=== PATIENT | female | born 1960 | race Caucasian/White ===

== ENCOUNTER 2017-03-31 13:29 | Inpatient (IN) ==
[2017-03-31] MEDS ORDERED: *HR* Morphine 2 MG/ML SYRINGE IVP ONE (13:39)
[2017-03-31] MEDS ORDERED: *HR* HYDROmorphone (PF) 1 MG/ML SYRINGE IM ONE (13:49)
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
[2017-03-31] MEDS ORDERED: *HR* HYDROmorphone (PF) 1 MG/ML SYRINGE IVP ONE (14:43)
[2017-03-31] MEDS ORDERED: Dexamethasone 4 MG/ML VIAL ONE (15:01)
[2017-03-31] MEDS ORDERED: *HR* FentaNYL (PF) 100 MCG/2 ML VIAL ONE (15:01)
[2017-03-31] MEDS ORDERED: *HR* Propofol 200 MG/20 ML VIAL IVP ONE (15:01)
[2017-03-31] MEDS ORDERED: Ondansetron 4 MG/2 ML VIAL ONE (15:01)
[2017-03-31] MEDS ORDERED: *HR* Midazolam HCl 2 MG/2 ML VIAL ONE (15:01)
--- NOTE | 2017-03-31 15:02 | Anesthesia Evaluation PreOp ---
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 HX Other Medical History: Other (osteoporosis) Anesthesia History: No Prior Anesthetic Complications, Past Anesthesia (C/S x3, right arm surgery) : No Alcohol Use: occasionally, heavy, recent Drug use: none Medications and Allergies 3 Allergy/AdvReac Type Severity Reaction Status Date / Time No Known Allergies Allergy Verified 03/31/17 13:35 - Meds/Allergy Pre-op Review Medications Reviewed: No Allergies Reviewed: No Beta Blockers on Current Med List: No Anesthesia Exam Selected Entries 03/31/17 13:32 Temperature 97.9 F Pulse Rate 93 Respiratory Rate 20 Blood Pressure 171/106 O2 Sat by Pulse Oximetry 98 Weight: 52kg - HEENT Pupil (Motor): EOMI Mallampati: II Teeth: Edentulous Oral Opening: Greater than 3 - 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 Reports last beer was this morning, approx 6 hours ago. 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
[2017-03-31] MEDS ORDERED: Lidocaine -MPF 2% 2 ML VIAL ONE (15:03)
--- NOTE | 2017-03-31 15:05 | Emergency Department Note ---
START Narrative - START START: I examined this patient and my medical decision-making was reviewed with the Resident Physician. I agree with the documented findings, disposition and treatment plan as described except to the extent set forth below. pt with right hip fx. seen by Ortho in ER, Dr Ramos. will take to OR this afternoon pt updated x rays reviewed pre-op clearance now
[2017-03-31 15:09] LABS: Basophils % 0.7 %; Eosinophils # 0.1 K/mcL (0.0-0.6); Eosinophils % 1.1 %; Hematocrit 45.1 % (35.3-44.9); Hemoglobin 15.4 g/dL (11.5-15.4); Immature Granulocytes % 0.4 % (0-4); Lymphocytes # 1.1 K/mcL (0.6-4.6); Lymphocytes % 23.2 %; Mean Corpuscular HGB Conc 34.1 g/dL (31.6-35.5); Mean Corpuscular Hemoglobin 31.2 pg (28.0-33.3); Mean Corpuscular Volume 91.5 fL (83.0-100.0); Monocytes # 0.2 K/mcL (0.0-1.3); Monocytes % 3.8 %; Neutrophils # 3.2 K/mcL (1.6-8.9); Platelet Count 256 K/mcL (140-400); Red Blood Count 4.93 M/mcL (3.82-4.97); Red Cell Distribution Width 12.3 % (11.5-14.5); Segmented Neutrophils % 70.8 %
[2017-03-31 15:14] LABS: Prothrombin Time 10.9 Seconds (9.4-12.1)
[2017-03-31 15:16] LABS: Activated Partial Thrombo Time 32.1 Seconds (26.0-36.0)
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
[2017-03-31 15:24] LABS: BUN/Creatinine Ratio 4 (6-26); Calcium 8.9 mg/dL (8.6-10.8); Carbon Dioxide 26 mEq/L (19-29); Chloride 100 mEq/L (98-109); Glucose 102 mg/dL (70-99); Osmolality,Calculated 276 (280-300); Potassium 3.8 mEq/L (3.5-4.5); Sodium 135 mEq/L (136-145); eGFR For African Americans > 60 (> 60); eGFR For Non-African Americans > 60 (> 60)
[2017-03-31 15:25] LABS: Blood Urea Nitrogen 2 mg/dL (7-20)
[2017-03-31] MEDS ORDERED: *HR* Succinylcholine 200 MG/10 ML VIAL IVP ONE (15:48)
[2017-03-31] MEDS ORDERED: *HR* Meperidine 25 MG/ML SYRINGE IVP PRN ×2 (15:56→16:08)
[2017-03-31] MEDS ORDERED: Naloxone 0.4 MG/ML INJ IVP PRN ×3 (15:56→17:14)
[2017-03-31] MEDS ORDERED: Ondansetron 4 MG/2 ML VIAL IVP PRN ×2 (15:56→16:08)
--- NOTE | 2017-03-31 16:04 | Orthopedic Operative Note ---
Date of procedure: 03/31/17 Pre-op diagnosis: Nondisplaced right hip fracture Post-op diagnosis: same Procedure: Procedure: Right hip open pinning Estimated blood loss: 5 cc Hardware:2 Synthes 7.3 cannulated metal screws Operative procedure: The patient was brought to the operating room and placed on the operating room table. After general anesthesia was administered the well leg was place in the well leg avendaño and the operative leg was placed in the fracture leg avendaño. All pressure points were padded appropriately. The operative extremity was prepped and draped in the sterile surgical fashion patient received IV antibiotic prior to skin incision. Using fluoroscopic assistance a guidepin was placed through a small stab incision on the lateral aspect of the femur. Placed through the lateral femur across the fracture site into the femoral head addition of the guidepin was found to be acceptable in AP and lateral planes. A second guidepin was placed in an appropriate position and confirmed with fluoroscopy. Two 7.3 cannulated screws were placed over the guidepins, and their position was confirmed with fluoroscopy as well. Hardware as well as fracture site was well reduced and well positioned. Wound was irrigated and closed with a 2-0 Monocryl suture The patient was placed in a sterile dressing The patient was extubated and transferred to the recovery room in stable condition. Anesthesia: GETA Surgeon: Brandin Ramos Condition: stable Disposition: PACU
[2017-03-31] MEDS ORDERED: *HR* HYDROmorphone (PF) 1 MG/ML SYRINGE IVP PRN (16:08)
[2017-03-31] MEDS ORDERED: *HR* HYDROmorphone (PF) 1 MG/ML SYRINGE ONE (16:35)
[2017-03-31] MEDS: *HR* HYDROmorphone (PF) 1 MG/ML SYRINGE IVP PRN ×4 (16:35→23:49)
--- NOTE | 2017-03-31 16:53 | Anesthesia Evaluation Post Op ---
Date of Encounter: 03/31/17 Time of Encounter: 16:52 - Vital Signs Vital Signs: Selected Entries 03/31/17 16:14 03/31/17 16:34 Temperature 97.2 F L Pulse Rate 78 Respiratory Rate 16 Blood Pressure 169/91 O2 Sat by Pulse Oximetry 97 Oxygen Flow Rate (LPM) 3 - Lungs Lungs: Clear Ascult./Percussion - Airway Airway: Non-obstructed - Cardiovascular Regular Rate - Mental Status Mental Status: Alert & Oriented, Answers Appropriately - Pain Pain Scale: 0 Pain Scale used: Numeric (1 - 10) - Nausea Vomiting Nausea Vomiting: Not Present - Hydration Hydration: NPO, Has not voided - Discharge PostOp Status: Transfer Patient to floor
[2017-03-31] MEDS ORDERED: *HR* OxyCODONE Immed Rel 5 MG TABLET PO PRN (17:14)
[2017-03-31] MEDS ORDERED: ceFAZolin 2,000 MG in D5% in Water 100 ML IVPB SCH (17:14)
[2017-03-31] MEDS ORDERED: traMADol 50 MG TABLET PO PRN (17:14)
[2017-03-31] MEDS ORDERED: diazePAM 10 MG/2 ML SYRINGE IVP PRN (17:15)
[2017-03-31] MEDS ORDERED: diazePAM 10 MG/2 ML SYRINGE IVP ONE (17:18)
[2017-03-31] MEDS: *HR* OxyCODONE Immed Rel 5 MG TABLET PO PRN ×2 (18:27→22:41)
[2017-03-31] MEDS: Nicotine 21 MG PATCH.TD24 TD SCH (20:08)
[2017-03-31] MEDS ORDERED: Albuterol 2.5 MG/3 ML NEBULIZER IH PRN (21:21)
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
[2017-03-31] MEDS: Ipratropium/Albuterol Neb 3 ML IH SCH (22:03)
[2017-03-31] MEDS ORDERED: *HR* LORazepam 2 MG/ML VIAL IVP PRN ×3 (22:37)
[2017-03-31] MEDS: ceFAZolin 2,000 MG in D5% in Water 100 ML IVPB SCH (23:49)
[2017-04-01] MEDS ORDERED: Ondansetron 4 MG/2 ML VIAL IVP PRN (01:08)
[2017-04-01] MEDS: *HR* HYDROmorphone (PF) 1 MG/ML SYRINGE IVP PRN ×2 (02:02→20:56)
[2017-04-01] MEDS: *HR* OxyCODONE Immed Rel 5 MG TABLET PO PRN ×4 (03:08→19:30)
[2017-04-01] MEDS: Ipratropium/Albuterol Neb 3 ML IH SCH ×4 (04:17→22:02)
--- NOTE | 2017-04-01 06:40 | Orthopedics Progress Note ---
Date of Encounter: 04/01/17 Time of Encounter: 06:39 Subjective Interval history: Patient was seen this morning doing overly sedated Afebrile vital signs stable. Operative extremity: Neurovascularly intact Dressing clean dry and intact Calves nontender Assessment and plan: Continue with postoperative care Hematocrit 45 Objective Vital signs: Vital Signs Temp Pulse Resp BP Pulse Ox 04/01/17 05:35 84 156/104 99 04/01/17 04:36 98.2 F 93 18 193/87 96 04/01/17 04:19 16 04/01/17 02:46 78 183/86 04/01/17 02:31 98.8 F 88 19 178/99 94 03/31/17 22:05 16 92 03/31/17 21:06 98.6 F 98 16 156/97 94 03/31/17 19:56 98.5 F 91 18 182/105 98 03/31/17 18:50 99.1 F 91 15 159/86 94 03/31/17 18:20 90 14 165/90 93 03/31/17 17:45 98.9 F 85 12 150/82 91 03/31/17 17:04 97.3 F L 76 16 134/76 100 03/31/17 16:54 74 16 143/77 100 03/31/17 16:44 97.2 F L 75 16 164/88 98 03/31/17 16:34 78 16 169/91 97 03/31/17 16:24 73 16 163/87 96 Intake and Output 03/31/17 03/31/17 04/01/17 15:59 23:59 07:59 Intake Total 500 / 500 580 / 580 Output Total 650 / 655 300 / 300 Balance -150 / -155 280 / 280 Intake: IV Fluids 100 / 100 Ancef 2,000 MG In Dextrose 5% 100 / 100 100 ML @ 200 mls/hr IVPB Q8HR [facility] Rx#:[id number] Oral 500 / 500 480 / 480 Output: Urine 650 / 650 300 / 300 Other: # Voids 1 1 - Labs CBC & BMP: 03/31/17 14:56 03/31/17 14:56 Labs: Abnormal lab results Hct 45.1 % (35.3-44.9) H 03/31/17 14:56 MPV 9.0 fL (9.4-12.4) L 03/31/17 14:56 Sodium 135 mEq/L (136-145) L 03/31/17 14:56 BUN 2 mg/dL (7-20) L 03/31/17 14:56 BUN/Creatinine Ratio 4 (6-26) L 03/31/17 14:56 Glucose 102 mg/dL (70-99) H 03/31/17 14:56 Calculated Osmolality 276 (280-300) L 03/31/17 14:56 - VTE Documentation of Mechanical Device: Venous foot pump, device Consult Discharge Plan - Plan Referrals: NONE,PCP [Primary Care Provider] -
[2017-04-01] MEDS ORDERED: Aspirin Enteric Coated 81 MG Tablet PO SCH (09:00)
[2017-04-01] MEDS ORDERED: Folic Acid 1 MG TABLET PO SCH (09:00)
[2017-04-01] MEDS ORDERED: Vitamin B Complex/Vit C/Vit E 1 EACH TABLET PO SCH (09:00)
[2017-04-01] MEDS: Thiamine (B-1) 100 MG TABLET PO SCH (09:56)
[2017-04-01] MEDS: Aspirin Enteric Coated 81 MG Tablet PO SCH (09:56)
[2017-04-01] MEDS: ceFAZolin 2,000 MG in D5% in Water 100 ML IVPB SCH (09:56)
[2017-04-01] MEDS: Nicotine 21 MG PATCH.TD24 TD SCH (09:57)
[2017-04-01] MEDS: Tiotropium 18 MCG inhalation IH SCH (10:51)
--- NOTE | 2017-04-01 14:01 | Internal Med Progress Note ---
Date of Encounter: 04/01/17 Time of Encounter: 11:25 - Assessment and plan (1) Right femoral fracture Current Visit: Yes Status: Acute Assessment and plan: Status post surgical repair with right hip open pinning. Postop day 1. Doing well. Pain is fairly controlled. Currently receiving Roxicodone and intravenous Dilaudid for pain control. High risk for complications due to use of intravenous narcotic medications. Qualifiers: Encounter type: initial encounter Femur location: neck Fracture type: closed Qualified Code(s): S72.001A - Fracture of unspecified part of neck of right femur, initial encounter for closed fracture (2) COPD (chronic obstructive pulmonary disease) Current Visit: No Status: Chronic Assessment and plan: Not in acute exacerbation. Continue bronchodilators as needed. O2 supplementation as needed Qualifiers: COPD type: unspecified COPD Qualified Code(s): J44.9 - Chronic obstructive pulmonary disease, unspecified (3) Tobacco dependence Current Visit: No Status: Chronic Assessment and plan: Patient has been counseled and provided with nicotine patch (4) Hypertension Current Visit: Yes Status: Chronic Assessment and plan: Blood pressure is elevated today. Started on metoprolol. We will continue to monitor blood pressure for now. On hydralazine IV as needed. Qualifiers: Hypertension type: essential hypertension Qualified Code(s): I10 - Essential (primary) hypertension (5) CAD (coronary artery disease) Current Visit: Yes Status: Chronic Assessment and plan: Continue aspirin and statin. Lipid profile does show elevated cholesterol levels. Qualifiers: Coronary Disease-Associated Artery/Lesion type: unspecified vessel or lesion type [place] vs. transplanted heart: unspecified whether [place] or transplanted heart Associated angina: angina presence unspecified Qualified Code(s): I25.10 - Atherosclerotic heart disease of [place] coronary artery without angina pectoris (6) DVT prophylaxis Current Visit: Yes Status: Acute Assessment and plan: With aspirin 162 mg. We will also add subcutaneous heparin while patient is here. (7) EtOH dependence Current Visit: Yes Status: Chronic Assessment and plan: No signs of withdrawal at this time. We will continue to monitor Qualifiers: Substance use status: uncomplicated Qualified Code(s): F10.20 - Alcohol dependence, uncomplicated - Subjective Interval history: Complains of pain in her right lower extremity. It has improved since her surgery. It intermittently gets worse but is mostly controlled with current patient medication regimen. Denies any fever or chills. No dizziness or lightheadedness. - Constitutional Vitals: Temp Pulse Resp BP Pulse Ox 98.6 F 81 16 151/79 100 04/01/17 10:44 04/01/17 10:44 04/01/17 10:53 04/01/17 10:44 04/01/17 10:53 General appearance: Present: A&O X 3, answers questions appropriately - Neck Neck exam general surgery: Present: supple, trachea midline. Absent: lymphadenopathy - Respiratory Respiratory exam: Present: CTAB. Absent: accessory muscle use, rales, rhonchi, wheezes - GI/Abdominal GI/Abdominal exam: Present: normal bowel sounds, soft, no peritoneal signs. Absent: distended, tenderness - Extremities Exam Extremities exam: Present: tenderness (at at surgical site.) Additional comments: Good range of motion at right foot and ankle - Neurological Exam Neurological exam: Present: alert, oriented X3, no focal deficits. Absent: facial droop, speech deficit Internal Medicine: Result - Labs CBC & Chem 7: 03/31/17 14:56 03/31/17 14:56 - ABG Interpretation ABG results: PT/INR, D-dimer PT 10.9 Seconds (9.4-12.1) 03/31/17 14:56 - VTE Documentation of Mechanical Device: Venous foot pump, device Consult Discharge Plan - Plan Referrals: NONE,PCP [Primary Care Provider] -
[2017-04-01 14:21] LABS: Hematocrit 39.7 % (35.3-44.9)
[2017-04-01 14:22] LABS: Hemoglobin 13.3 g/dL (11.5-15.4)
--- NOTE | 2017-04-01 17:44 | Electrocardiograph Report ---
[address] [address] Test Date: 2017-04-01 Pat Name: Bri Nelson Department: 114 Room: [facility] Gender: F Manager Lean: [id number] : 1960 Requested By: Taniya Nelson Order Number: [id number] Reading MD: Cheryle Gray Measurements Intervals [place] Rate: 89 P: 68 W[place]: 140 QRS: 115 QRSD: 154 T: 74 QT: 410 QTc: 457 Interpretive Statements SINUS RHYTHM WITH OCCASIONAL SUPRAVENTRICULAR PREMATURE COMPLEXES MARKED RIGHT AXIS DEVIATION RIGHT BUNDLE BRANCH BLOCK Electronically Signed On 04-01-2017 17:42:46 EDT by Cheryle Gray
[2017-04-01] MEDS: *HR* Heparin 5,000 UNIT/ML VIAL SQ SCH (18:34)
[2017-04-01] MEDS: Thiamine (B-1) 100 MG, Folic Acid 1 MG, MVI, adult with vitamin K 10 ML in 0.9 % Sodi... IVPB SCH (22:47)
[2017-04-02 04:50] LABS: Hematocrit 38.1 % (35.3-44.9); Hemoglobin 12.7 g/dL (11.5-15.4)
[2017-04-02] MEDS: Ipratropium/Albuterol Neb 3 ML IH SCH ×4 (04:53→22:33)
[2017-04-02] MEDS: *HR* OxyCODONE Immed Rel 5 MG TABLET PO PRN ×5 (05:03→21:58)
[2017-04-02] MEDS: *HR* HYDROmorphone (PF) 1 MG/ML SYRINGE IVP PRN (06:20)
[2017-04-02] MEDS: *HR* Heparin 5,000 UNIT/ML VIAL SQ SCH ×2 (06:20→17:51)
--- NOTE | 2017-04-02 08:07 | Orthopedics Progress Note ---
Date of Encounter: 04/02/17 Time of Encounter: 08:07 Subjective Interval history: Patient was seen this morning doing better Afebrile vital signs stable. Operative extremity: Neurovascularly intact Dressing clean dry and intact Calves nontender Assessment and plan: Continue with postoperative care Stable for discharge Objective Vital signs: Vital Signs Temp Pulse Resp BP Pulse Ox 04/02/17 06:53 97.4 F L 82 18 148/72 94 04/02/17 04:54 14 93 04/02/17 04:38 97.6 F 79 18 161/78 93 04/01/17 22:54 98.0 F 74 20 123/69 95 04/01/17 22:04 15 98 04/01/17 19:28 99.2 F 73 16 118/68 100 04/01/17 16:21 16 100 04/01/17 16:01 98.1 F 79 16 158/81 99 04/01/17 10:53 16 100 04/01/17 10:44 98.6 F 81 14 151/79 99 Intake and Output 04/01/17 04/02/17 04/02/17 23:59 07:59 15:59 Intake Total 511.2 / 511.2 Output Total 0 / 0 Balance 511.2 / 511.2 Intake: IV Fluids 511.2 / 511.2 Vitamin B-1 100 MG Folvite 1 MG 511.2 / 511.2 M.v.i. Adult 10 ml In 0.9 % Sodium Chloride 500 ML @ 85.2 mls/hr IVPB DAILY@1800 [facility] Rx#: [id number] Oral 0 / 0 Output: Urine 0 / 0 Other: # Voids 1 1 Weight 54.136 kg Patient Weight 04/02/17 23:59 Weight 54.136 kg - Labs CBC & BMP: 04/02/17 04:43 03/31/17 14:56 Labs: Abnormal lab results MPV 9.0 fL (9.4-12.4) L 03/31/17 14:56 Sodium 135 mEq/L (136-145) L 03/31/17 14:56 BUN 2 mg/dL (7-20) L 03/31/17 14:56 BUN/Creatinine Ratio 4 (6-26) L 03/31/17 14:56 Glucose 102 mg/dL (70-99) H 03/31/17 14:56 Calculated Osmolality 276 (280-300) L 03/31/17 14:56 Cholesterol 286 mg/dL (< 200) H 04/01/17 06:10 LDL Cholesterol, Calc 176 mg/dL (0-99) H 04/01/17 06:10 HDL Cholesterol 94 mg/dL (40-59) H 04/01/17 06:10 - VTE Documentation of Mechanical Device: Venous foot pump, device Consult Discharge Plan - Plan Referrals: NONE,PCP [Primary Care Provider] -
[2017-04-02] MEDS: Aspirin Enteric Coated 81 MG Tablet PO SCH (09:22)
[2017-04-02] MEDS: Thiamine (B-1) 100 MG TABLET PO SCH (09:22)
[2017-04-02] MEDS: Nicotine 21 MG PATCH.TD24 TD SCH (09:23)
[2017-04-02] MEDS: Tiotropium 18 MCG inhalation IH SCH (10:38)
--- NOTE | 2017-04-02 13:54 | Internal Med Progress Note ---
Date of Encounter: 04/02/17 Time of Encounter: 11:00 - Assessment and plan (1) Right femoral fracture Current Visit: Yes Status: Acute Assessment and plan: Postoperative day 2. Continues to improve. Continue physical therapy. Pain control. We will stop intravenous narcotic medications. Awaiting placement to skilled rehabilitation. Has been cleared for discharge from orthopedic standpoint Qualifiers: Encounter type: initial encounter Femur location: neck Fracture type: closed Qualified Code(s): S72.001A - Fracture of unspecified part of neck of right femur, initial encounter for closed fracture (2) COPD (chronic obstructive pulmonary disease) Current Visit: No Status: Chronic Assessment and plan: Not in acute exacerbation. Continue bronchodilators as needed Qualifiers: COPD type: unspecified COPD Qualified Code(s): J44.9 - Chronic obstructive pulmonary disease, unspecified (3) Tobacco dependence Current Visit: No Status: Chronic Assessment and plan: Continue nicotine patch (4) Hypertension Current Visit: Yes Status: Chronic Assessment and plan: Blood pressure is well controlled. Qualifiers: Hypertension type: essential hypertension Qualified Code(s): I10 - Essential (primary) hypertension (5) CAD (coronary artery disease) Current Visit: Yes Status: Chronic Assessment and plan: No chest pain. Continue aspirin, statin Qualifiers: Coronary Disease-Associated Artery/Lesion type: unspecified vessel or lesion type [place] vs. transplanted heart: unspecified whether [place] or transplanted heart Associated angina: angina presence unspecified Qualified Code(s): I25.10 - Atherosclerotic heart disease of [place] coronary artery without angina pectoris (6) DVT prophylaxis Current Visit: Yes Status: Acute Assessment and plan: Continue aspirin by mouth and heparin subcutaneous (7) EtOH dependence Current Visit: Yes Status: Chronic Assessment and plan: No signs of withdrawal at this time. Qualifiers: Substance use status: uncomplicated Qualified Code(s): F10.20 - Alcohol dependence, uncomplicated - Subjective Interval history: Pain is better controlled today. Did work with physical therapy. No tremors or hallucinations. Tolerating diet well. - Constitutional Vitals: Temp Pulse Resp BP Pulse Ox 97.5 F L 88 18 124/75 94 04/02/17 11:04 04/02/17 11:04 04/02/17 11:04 04/02/17 11:04 04/02/17 11:04 General appearance: Present: cooperative, A&O X 3, no acute distress, answers questions appropriately - Eye Eye exam: Present: EOMI, PERRL, conjuntiva pink, sclera anicteric - Respiratory Respiratory exam: Present: CTAB. Absent: accessory muscle use, rales, rhonchi, wheezes - Cardiovascular Cardiovascular exam: Present: RRR, +S1, +S2. Absent: diastolic murmur, gallop, rubs, systolic murmur - GI/Abdominal GI/Abdominal exam: Present: normal bowel sounds, soft, no peritoneal signs. Absent: distended, tenderness - Extremities Exam Extremities exam: Present: tenderness (Right lower extremity), warm, radial pulses palpable and symmetrical. Absent: calf tenderness, cyanotic, pedal edema - Neurological Exam Neurological exam: Present: alert, oriented X3, no focal deficits. Absent: facial droop, speech deficit Internal Medicine: Result - Labs CBC & Chem 7: 04/02/17 04:43 03/31/17 14:56 Labs: Short CBC 04/01/17 04/02/17 Range/Units 14:15 04:43 Hgb 13.3 D 12.7 (11.5-15.4) g/dL Hct 39.7 38.1 (35.3-44.9) % - ABG Interpretation ABG results: PT/INR, D-dimer PT 10.9 Seconds (9.4-12.1) 03/31/17 14:56 - VTE Documentation of Mechanical Device: Venous foot pump, device Consult Discharge Plan - Plan Referrals: NONE,PCP [Primary Care Provider] -
[2017-04-02] MEDS: Thiamine (B-1) 100 MG, Folic Acid 1 MG, MVI, adult with vitamin K 10 ML in 0.9 % Sodi... IVPB SCH (17:52)
--- NOTE | 2017-04-02 20:57 | Event Note ---
Date of Encounter: 04/02/17 Time of Encounter: 11:50 PCR - Right hip pinning 03/31 Dr. Ramos POD#.2 Comorbidities: DMII, Obesity, HTN, HTN Labs: 04/02 H/H 12.7/38.1 Patient seen at bedside. Pain control: adequate Participating in PT. WBTT All questions and concerns addressed. Educated on use of incentive spirometer, ambulation, and hydration. Patient educated on post-operative restrictions and care. Addressed: Constipation --- adding Miralax - she states she has not been passing much gas. She is already taking Docusate however no BM/gas yet. Educated patient on post-operative and pain medication related constipation. Patient verbalizes understanding. Discussed this with nursing staff as well and requested they keep close eye on patient for hypoactive bowel sounds and stools. D/C plan: ECF per hospitalist management.
[2017-04-03] MEDS: *HR* OxyCODONE Immed Rel 5 MG TABLET PO PRN ×5 (02:15→23:37)
[2017-04-03] MEDS: Ipratropium/Albuterol Neb 3 ML IH SCH ×4 (04:11→22:33)
[2017-04-03] MEDS: *HR* Heparin 5,000 UNIT/ML VIAL SQ SCH ×2 (05:53→18:08)
[2017-04-03] MEDS: Thiamine (B-1) 100 MG TABLET PO SCH (07:43)
[2017-04-03] MEDS: Nicotine 21 MG PATCH.TD24 TD SCH (07:50)
[2017-04-03] MEDS: Aspirin Enteric Coated 81 MG Tablet PO SCH (07:50)
[2017-04-03] MEDS: Tiotropium 18 MCG inhalation IH SCH (10:42)
--- NOTE | 2017-04-03 12:58 | Orthopedics Progress Note ---
Date of Encounter: 04/03/17 Time of Encounter: 13:20 - Assessment and Plan (1) Right femoral fracture Current Visit: Yes Status: Acute Qualifiers: Encounter type: initial encounter Femur location: neck Fracture type: closed Qualified Code(s): S72.001A - Fracture of unspecified part of neck of right femur, initial encounter for closed fracture (2) COPD (chronic obstructive pulmonary disease) Current Visit: No Status: Chronic Qualifiers: COPD type: unspecified COPD Qualified Code(s): J44.9 - Chronic obstructive pulmonary disease, unspecified (3) Tobacco dependence Current Visit: No Status: Chronic (4) Hypertension Current Visit: Yes Status: Chronic Qualifiers: Hypertension type: essential hypertension Qualified Code(s): I10 - Essential (primary) hypertension (5) CAD (coronary artery disease) Current Visit: Yes Status: Chronic Qualifiers: Coronary Disease-Associated Artery/Lesion type: [place] artery [place] vs. transplanted heart: [place] heart Associated angina: without angina Qualified Code(s): I25.10 - Atherosclerotic heart disease of [place] coronary artery without angina pectoris (6) Osteoporosis Current Visit: No Status: Chronic Qualifiers: Osteoporosis type: unspecified Presence of current pathological fracture: with current pathological fracture Encounter type: initial encounter Qualified Code(s): M80.00XA - Age-related osteoporosis with current pathological fracture, unspecified site, initial encounter for fracture (7) Anemia Current Visit: No Status: Chronic Qualifiers: Anemia type: unspecified type Qualified Code(s): D64.9 - Anemia, unspecified Subjective Principal diagnosis: right hip pain Interval history: POD#[address] Ramos Patient was seen this morning doing well Afebrile vital signs stable. Operative extremity: Neurovascularly intact Dressing clean dry and intact Calves nontender Assessment and plan: Continue with postoperative care Stable for discharge Plan for rehab per hospitalist direction Continue WBTT Opsite dressing: leave intact until first post-operative visit. Do not allow for dressing to get wet. If dressing becomes >50% saturated, contact office, remove dressing and place appropriate dressing in its place. Gustavo in place, plan to remove at post-operative day #14-16. Keep follow up with [facility] as scheduled. Objective Vital signs: Vital Signs Temp Pulse Resp BP Pulse Ox 04/03/17 10:58 98.0 F 80 18 145/82 99 04/03/17 10:43 16 98 04/03/17 06:58 98 F 83 16 121/74 94 04/03/17 04:11 18 95 04/03/17 00:27 97.9 F 77 18 117/79 100 04/02/17 22:33 18 97 04/02/17 21:34 98.2 F 91 18 140/70 96 04/02/17 15:59 18 94 04/02/17 15:34 97.1 F L 79 18 149/79 96 Intake and Output 04/02/17 04/03/17 04/03/17 23:59 07:59 15:59 Intake Total 480 / 480 511.2 / 511.2 Output Total 0 / 0 Balance 480 / 480 511.2 / 511.2 Intake: IV Fluids 511.2 / 511.2 Vitamin B-1 100 MG Folvite 1 MG 511.2 / 511.2 M.v.i. Adult 10 ml In 0.9 % Sodium Chloride 500 ML @ 85.2 mls/hr IVPB DAILY@1800 [facility] Rx#: [id number] Oral 480 / 480 Output: Urine 0 / 0 Other: Meal Dinner Percent of Meal Consumed 100% Stool Size Small Stool Consistency loose Stool Color Brown # Voids 1 1 # Bowel Movements 1 Weight 54.22 kg Patient Weight 04/03/17 23:59 Weight 54.22 kg - Labs CBC & BMP: 04/02/17 04:43 03/31/17 14:56 Labs: Abnormal lab results MPV 9.0 fL (9.4-12.4) L 03/31/17 14:56 Sodium 135 mEq/L (136-145) L 03/31/17 14:56 BUN 2 mg/dL (7-20) L 03/31/17 14:56 BUN/Creatinine Ratio 4 (6-26) L 03/31/17 14:56 Glucose 102 mg/dL (70-99) H 03/31/17 14:56 Calculated Osmolality 276 (280-300) L 03/31/17 14:56 Cholesterol 286 mg/dL (< 200) H 04/01/17 06:10 LDL Cholesterol, Calc 176 mg/dL (0-99) H 04/01/17 06:10 HDL Cholesterol 94 mg/dL (40-59) H 04/01/17 06:10 - VTE Documentation of Mechanical Device: Venous foot pump, device Consult Discharge Plan - Plan Additional Instructions: Continue WBTT Opsite dressing: leave intact until first post-operative visit. Do not allow for dressing to get wet. If dressing becomes >50% saturated, contact office, remove dressing and place appropriate dressing in its place. Gustavo in place, plan to remove at post-operative day #14-16. Keep follow up with [facility] as scheduled. Referrals: Brandin Ramos MD [Partnered Physician] - (in 1-2 weeks) NONE,PCP [Primary Care Provider] - (with PCP In 1 week) Prescriptions: Albuterol Neb [Proventil Neb] 2.5 mg IH Q4HR PRN #30 inhsol PRN Reason: Shortness Of Breath/Wheezing OxyCODONE Immed Rel [Roxicodone 5 MG] 10 mg PO Q4HR PRN #14 tablet PRN Reason: Moderate pain 4-6 Alendronate Sodium [Fosamax] 70 mg PO QWEEK #10 tab Aspirin Enteric Coated [Aspirin EC] 81 mg PO DAILY #30 tablet. Cholecalciferol (Vitamin D3) [Vitamin D] 50,000 unit PO QWEEK #7 capsule Enoxaparin [Lovenox] 40 mg SQ DAILY #10 syr Metoprolol [Lopressor] 25 mg PO BID #60 tablet Simvastatin [Zocor] 40 mg PO HS #30 tablet Thiamine (B-1) [Vitamin B-1] 100 mg PO DAILY #30 tablet Tiotropium [Spiriva] 18 mcg IH DAILY@0700 #1 inh
--- NOTE | 2017-04-03 14:35 | Discharge Summary ---
Date of Encounter: 04/03/17 Time of Encounter: 10:45 - Discharge Diagnosis (1) Right femoral fracture Priority: Primary Status: Acute Qualifiers: Encounter type: initial encounter Femur location: neck Fracture type: closed Qualified Code(s): S72.001A - Fracture of unspecified part of neck of right femur, initial encounter for closed fracture (2) COPD (chronic obstructive pulmonary disease) Priority: Secondary Status: Chronic Qualifiers: COPD type: unspecified COPD Qualified Code(s): J44.9 - Chronic obstructive pulmonary disease, unspecified (3) Tobacco dependence Priority: Secondary Status: Chronic (4) Hypertension Priority: Secondary Status: Chronic Qualifiers: Hypertension type: essential hypertension Qualified Code(s): I10 - Essential (primary) hypertension (5) CAD (coronary artery disease) Priority: Secondary Status: Chronic Qualifiers: Coronary Disease-Associated Artery/Lesion type: [place] artery [place] vs. transplanted heart: [place] heart Associated angina: without angina Qualified Code(s): I25.10 - Atherosclerotic heart disease of [place] coronary artery without angina pectoris (6) DVT prophylaxis Priority: Secondary Status: Acute (7) EtOH dependence Priority: Secondary Status: Chronic Qualifiers: Substance use status: uncomplicated Qualified Code(s): F10.20 - Alcohol dependence, uncomplicated - Discharge Medications Prescriptions: Albuterol Neb [Proventil Neb] 2.5 mg IH Q4HR PRN #30 inhsol PRN Reason: Shortness Of Breath/Wheezing OxyCODONE Immed Rel [Roxicodone 5 MG] 10 mg PO Q4HR PRN #14 tablet PRN Reason: Moderate pain 4-6 Alendronate Sodium [Fosamax] 70 mg PO QWEEK #10 tab Aspirin Enteric Coated [Aspirin EC] 81 mg PO DAILY #30 tablet. Cholecalciferol (Vitamin D3) [Vitamin D] 50,000 unit PO QWEEK #7 capsule Enoxaparin [Lovenox] 40 mg SQ DAILY #10 syr Metoprolol [Lopressor] 25 mg PO BID #60 tablet Simvastatin [Zocor] 40 mg PO HS #30 tablet Thiamine (B-1) [Vitamin B-1] 100 mg PO DAILY #30 tablet Tiotropium [Spiriva] 18 mcg IH DAILY@0700 #1 inh Home Medications: Albuterol Neb [Proventil Neb] 2.5 mg IH Q4HR PRN #30 inhsol 04/03/17 [Rx] Alendronate Sodium [Fosamax] 70 mg PO QWEEK #10 tab 04/03/17 [Rx] Aspirin Enteric Coated [Aspirin EC] 81 mg PO DAILY #30 tablet.dr 04/03/17 [Rx] Cholecalciferol (Vitamin D3) [Vitamin D] 50,000 unit PO QWEEK #7 capsule [Rx] Enoxaparin [Lovenox] 40 mg SQ DAILY #10 syr 04/03/17 [Rx] Metoprolol [Lopressor] 25 mg PO BID #60 tablet 04/03/17 [Rx] OxyCODONE Immed Rel [Roxicodone 5 MG] 10 mg PO Q4HR PRN #14 tablet 04/03/17 [Rx] Polyethylene Glycol 3350 [MiraLAX] 17 gm PO BID PRN #0 powd.pack 04/03/17 [Rx] Simvastatin [Zocor] 40 mg PO HS #30 tablet 04/03/17 [Rx] Thiamine (B-1) [Vitamin B-1] 100 mg PO DAILY #30 tablet 04/03/17 [Rx] Tiotropium [Spiriva] 18 mcg IH DAILY@0700 #1 inh 04/03/17 [Rx] Allergies/Adverse Reactions: 3 Allergy/AdvReac Type Severity Reaction Status Date / Time No Known Allergies Allergy Verified 03/31/17 13:35 Procedures/tests Complete & Pending: Procedures Performed prior 72 hours Category Date Time Status EKG [ECG 12 lead ECG] [ECG] Routine Y 03/31/17 22:49 Completed Date of admission: 03/31/17 16:16 Primary care physician: PCP NONE Consults: 03/31/17 17:15 Consult to Chemical Engineering Professor [CONS] Routine Reason for SW Consult: d/c planning; etoh abuse; home health? 03/31/17 17:58 Consult to Nutrition [CONS] Routine Comment: pt reports weight loss/no appetite/etoh abuse Consulting Provider: NUTRITION Reason for Dietary Consult: MST Score Discharging clinician: Aldo Kearns Anticipated date of discharge: 04/05/17 - Patient Status Disposition: Transfer SNF Condition: Good Functional capacity at discharge: uses cane/walker Overall status at discharge: patient is progressing back to baseline - Discharge Instructions Follow Up With: Juanita Soliman PAC [Physician Wellness Instructor] - 04/16/17 9:45 am Brandin Ramos MD [Partnered Physician] - 05/13/17 9:20 am (in 1-2 weeks) Love Wharton DO [Resident] - 04/09/17 2:00 pm Additional Instructions: Continue WBTT Opsite dressing: leave intact until first post-operative visit. Do not allow for dressing to get wet. If dressing becomes >50% saturated, contact office, remove dressing and place appropriate dressing in its place. Gustavo in place, plan to remove at post-operative day #14-16. Keep follow up with [facility] as scheduled. Discharge Instructions: Total Hip Replacement Please call [facility] ([phone]), your Primary Care Physician, or report to the Emergency Room if you have any of the following symptoms: Nausea, vomiting, fever greater that 101.5, swelling, chest pain, shortness of breath, increased pain/redness/drainage/odor for your incision site, numbness/ tingling, or any other concerning symptoms. ACTIVITY:Weight-bearing as tolerated for 8 weeks with hip dislocation precautions that physical therapy taught you. You may progress as tolerated under the guidance of your physical therapist. You do not need to sleep with a pillow between your legs. You can also seep on the operative side or on your stomach. MEDICATIONS: Upon discharge resume your home medications. Take all the medications as prescribed. Take a stool softener if taking narcotic pain medications. Stool softeners are only effective if you drink enough fluids. Drink 6-8 glass of water or fluids a day, unless this is not allowed for another health problem. Despite using stool softeners, if you haven't had a bowel movement in 3 days, please switch to a gentle laxative. Gentle laxatives are sold over the counter. You should have a bowel movement within 24 hours, if not call the office. You will be discharged from the hospital with a prescription for pain medication. You are encouraged to decrease the use of narcotic pain medication as tolerated. Should you require a refill, please call the office. [facility] prescribes narcotic pain medication for only 4-6 weeks after surgery. If you require pain medication beyond this time period, you may be referred to your Primary Care Physician or to the Pain Clinic for further evaluation. Plan ahead for refills on pain medication as many narcotics either need to be picked up at the office or mailed. It is best to call 48-72 hours in advance of needing a prescription refill so you don't run out of medication. To help control the post-operative pain, you may take NSAIDs (Aleve,Advil, Motrin, ibuprofen, naprosyn) or Tylenol as prescribed on the bottle in addition to the pain medication. ANTICOAGULATION (blood thinners): Continue your Aspirin, Lovenox or Coumadin as prescribed to help prevent a blood clot in the leg or in the lungs. As long as your incision remains dry and you tolerate the NSAIDs (Aleve, Advil, Motrin, Ibuprofen, Naprosyn), it is OK to use the NSAIDS while you are taking your anticoagulation medication. Should your incision start to drain, stop the NSAID and contact our office. Common symptoms of blood clot in the legs include: localized pain, swelling, calf tenderness, redness or discoloration of the skin. Blood clot in the lung symptoms include: shortness of breath, rapid pulse, sweating, and chest pain that worsens with deep breathing, coughing up blood, lightheadedness, feelings of anxiety. If you experience any of these symptoms notify your physician immediately, go to the emergency room, or if having trouble breathing, call 911. WOUND CARE: Leave the dressing on for 7 to 10days. You may change the dressing if it is saturated greater than 50%. Do not get the dressing wet at anytime. Wash your hands with antibacterial soap, rinse and dry prior to any wound care. If you have gustavo the visiting nurse or rehab facility can remove the stapes 10-14 days after surgery and place steri-strips across the wound. Leave the steri-strips in place until they fall off on their own. You may let water from the shower run on top of the steri-strips. If you do not have a visiting nurse or rehab facility, you will need to return to the office at 10-14 days for the gustavo to be removed. If you have itching or redness around the dressing call the office. FOLLOW-UP: Please follow up with your surgeon in the orthopedic clinic in 6 weeks from the day of surgery. If you have gustavo that need to be removed, you will need to come back to the office in 10-14 days from the day of surgery. - Diet and Activity Activity: as per physical therapy Diet: low fat, low cholesterol, low salt diet Hospital course: Ms. Nelson is a 57 year old female patient with history of COPD, coronary artery disease, hypertension who was hospitalized here after a fall resulting in right femoral neck fracture. She was evaluated by orthopedics and recommended surgery. She underwent right hip open pinning. Since then she has been recovering here with physical therapy. She has a history of alcohol and tobacco abuse. She was monitored for alcohol withdrawal but did not develop any symptoms of acute alcohol withdrawal. She was treated empirically with folic acid supplements. She has not been recommended placement to skilled rehabilitation and is stable to be discharged to skilled rehabilitation when she has a bed available. She has been provided with prescriptions for all the medications that she is supposed to be taking for coronary artery disease and COPD. She will be on anticoagulation with Lovenox for about 10 days. She can follow up with orthopedics in 1-2 weeks after discharge. Patient left the hospital on 04/04/17. - Time Spent with Patient Total time spent providing and/or coordinating discharge services: Greater than 30 minutes (50 min) - Constitutional Vitals: Temp Pulse Resp BP Pulse Ox 98.0 F 80 18 145/82 99 04/03/17 10:58 04/03/17 10:58 04/03/17 10:58 04/03/17 10:58 04/03/17 10:58 General appearance: Present: cooperative, A&O X 3, no acute distress, answers questions appropriately - Respiratory Respiratory exam: Present: CTAB. Absent: accessory muscle use, rales, rhonchi, wheezes - Cardiovascular Cardiovascular exam: Present: RRR, +S1, +S2. Absent: diastolic murmur, gallop, rubs, systolic murmur - GI/Abdominal GI/Abdominal exam: Present: normal bowel sounds, soft, no peritoneal signs. Absent: distended, tenderness - Extremities Exam Extremities exam: Present: tenderness (right hip), warm, radial pulses palpable and symmetrical. Absent: calf tenderness, cyanotic, pedal edema - VTE Documentation of Mechanical Device: Venous foot pump, device
--- NOTE | 2017-04-03 14:41 | Physician Discharge Referral ---
ExtendedCare Referral Info Provider in Charge after Transfer: PCP Institutional Level of Care: Skilled - Diagnosis (1) Right femoral fracture Priority: Primary Status: Acute (2) COPD (chronic obstructive pulmonary disease) Priority: Secondary Status: Chronic (3) Tobacco dependence Priority: Secondary Status: Chronic (4) Hypertension Priority: Secondary Status: Chronic (5) CAD (coronary artery disease) Priority: Secondary Status: Chronic (6) DVT prophylaxis Priority: Secondary Status: Acute (7) EtOH dependence Priority: Secondary Status: Chronic Prognosis: Fair Aware of Diagnosis: Patient Aware of Prognosis: Patient - Transfer Medications Prescriptions: Albuterol Neb [Proventil Neb] 2.5 mg IH Q4HR PRN #30 inhsol PRN Reason: Shortness Of Breath/Wheezing OxyCODONE Immed Rel [Roxicodone 5 MG] 10 mg PO Q4HR PRN #14 tablet PRN Reason: Moderate pain 4-6 Alendronate Sodium [Fosamax] 70 mg PO QWEEK #10 tab Aspirin Enteric Coated [Aspirin EC] 81 mg PO DAILY #30 tablet. Cholecalciferol (Vitamin D3) [Vitamin D] 50,000 unit PO QWEEK #7 capsule Enoxaparin [Lovenox] 40 mg SQ DAILY #10 syr Metoprolol [Lopressor] 25 mg PO BID #60 tablet Simvastatin [Zocor] 40 mg PO HS #30 tablet Thiamine (B-1) [Vitamin B-1] 100 mg PO DAILY #30 tablet Tiotropium [Spiriva] 18 mcg IH DAILY@0700 #1 inh Home Medications: Albuterol Neb [Proventil Neb] 2.5 mg IH Q4HR PRN #30 inhsol 04/03/17 [Rx] Alendronate Sodium [Fosamax] 70 mg PO QWEEK #10 tab 04/03/17 [Rx] Aspirin Enteric Coated [Aspirin EC] 81 mg PO DAILY #30 tablet. 04/03/17 [Rx] Cholecalciferol (Vitamin D3) [Vitamin D] 50,000 unit PO QWEEK #7 capsule [Rx] Enoxaparin [Lovenox] 40 mg SQ DAILY #10 syr 04/03/17 [Rx] Metoprolol [Lopressor] 25 mg PO BID #60 tablet 04/03/17 [Rx] OxyCODONE Immed Rel [Roxicodone 5 MG] 10 mg PO Q4HR PRN #14 tablet 04/03/17 [Rx] Polyethylene Glycol 3350 [MiraLAX] 17 gm PO BID PRN #0 powd.pack 04/03/17 [Rx] Simvastatin [Zocor] 40 mg PO HS #30 tablet 04/03/17 [Rx] Thiamine (B-1) [Vitamin B-1] 100 mg PO DAILY #30 tablet 04/03/17 [Rx] Tiotropium [Spiriva] 18 mcg IH DAILY@0700 #1 inh 04/03/17 [Rx] Allergies/Adverse Reactions: 3 Allergy/AdvReac Type Severity Reaction Status Date / Time No Known Allergies Allergy Verified 03/31/17 13:35 - Respiratory Orders Smoking Cessation: Smoking cessation has been advised. For more information, call the [place] Tobacco Quit Line at 9-910-AVAT-NOW. - Ancillary Orders May consult with Dentist, Residence Manager, Dependency Case Manager PRN - Advance Directives Code Status: Full Code - Rehabiliation Orders Rehab Potential: Fair Rehab Orders: Evaluation for Physical Therapy, Evaluation for Occupational Therapy - Diet Orders Cardiac CERTIFICATION: I certify that the transfer of the above named patient to an Extended Care Facility is necessary for the continuing treatment of the diagnosis listed. The above information is true and accurate reflection of patient's current condition. Confidential - Redisclosure prohibited without a patient's written consent.
[2017-04-03] MEDS: Thiamine (B-1) 100 MG, Folic Acid 1 MG, MVI, adult with vitamin K 10 ML in 0.9 % Sodi... IVPB SCH (18:03)
[2017-04-04] MEDS: Ipratropium/Albuterol Neb 3 ML IH SCH ×3 (04:20→16:06)
[2017-04-04] MEDS: *HR* Heparin 5,000 UNIT/ML VIAL SQ SCH ×2 (05:00→17:37)
[2017-04-04] MEDS: *HR* OxyCODONE Immed Rel 5 MG TABLET PO PRN ×3 (05:00→17:36)
[2017-04-04] MEDS: Thiamine (B-1) 100 MG TABLET PO SCH (08:32)
[2017-04-04] MEDS: Nicotine 21 MG PATCH.TD24 TD SCH (08:33)
[2017-04-04] MEDS: Aspirin Enteric Coated 81 MG Tablet PO SCH (08:33)
[2017-04-04] MEDS: Tiotropium 18 MCG inhalation IH SCH (09:21)
--- NOTE | 2017-04-04 12:50 | Internal Med Progress Note ---
Date of Encounter: 04/04/17 Time of Encounter: 12:49 - Assessment and plan (1) Right femoral fracture Current Visit: Yes Status: Acute Assessment and plan: Continue physical therapy. Awaiting placement to skilled rehabilitation Qualifiers: Encounter type: initial encounter Femur location: neck Fracture type: closed Qualified Code(s): S72.001A - Fracture of unspecified part of neck of right femur, initial encounter for closed fracture (2) COPD (chronic obstructive pulmonary disease) Current Visit: Yes Status: Chronic Assessment and plan: Continue bronchodilators as needed. No acute exacerbation Qualifiers: COPD type: unspecified COPD Qualified Code(s): J44.9 - Chronic obstructive pulmonary disease, unspecified (3) Tobacco dependence Current Visit: No Status: Chronic Assessment and plan: Continue nicotine patch (4) Hypertension Current Visit: Yes Status: Chronic Assessment and plan: Blood pressure elevated today. Will increase metoprolol dosage. Qualifiers: Hypertension type: essential hypertension Qualified Code(s): I10 - Essential (primary) hypertension (5) CAD (coronary artery disease) Current Visit: Yes Status: Chronic Assessment and plan: Continue aspirin and statin beta roger. Qualifiers: Coronary Disease-Associated Artery/Lesion type: [place] artery [place] vs. transplanted heart: [place] heart Associated angina: without angina Qualified Code(s): I25.10 - Atherosclerotic heart disease of [place] coronary artery without angina pectoris (6) EtOH dependence Current Visit: Yes Status: Chronic Assessment and plan: No signs of withdrawal. Qualifiers: Substance use status: uncomplicated Qualified Code(s): F10.20 - Alcohol dependence, uncomplicated (7) DVT prophylaxis Current Visit: Yes Status: Acute - Subjective Interval history: Patient is doing well. Pain is well controlled. Working with physical therapy. Awaiting placement to skilled rehabilitation. - Constitutional Vitals: Temp Pulse Resp BP Pulse Ox 97.9 F 105 16 164/89 93 04/04/17 09:42 04/04/17 09:42 04/04/17 10:08 04/04/17 09:42 04/04/17 10:08 General appearance: Present: cooperative, A&O X 3, no acute distress, answers questions appropriately - Neck Neck exam general surgery: Present: supple, trachea midline. Absent: lymphadenopathy - Respiratory Respiratory exam: Present: CTAB. Absent: accessory muscle use, rales, rhonchi, wheezes - Cardiovascular Cardiovascular exam: Present: RRR, +S1, +S2. Absent: diastolic murmur, gallop, rubs, systolic murmur - GI/Abdominal GI/Abdominal exam: Present: normal bowel sounds, soft, no peritoneal signs. Absent: distended, tenderness - Extremities Exam Extremities exam: Present: tenderness (Right hip pain), warm, radial pulses palpable and symmetrical. Absent: calf tenderness, cyanotic, pedal edema - Neurological Exam Neurological exam: Present: CN II-XII intact, oriented X3, no focal deficits. Absent: facial droop, speech deficit Internal Medicine: Result - Labs CBC & Chem 7: 04/02/17 04:43 03/31/17 14:56 - ABG Interpretation ABG results: PT/INR, D-dimer PT 10.9 Seconds (9.4-12.1) 03/31/17 14:56 - VTE Documentation of Mechanical Device: Venous foot pump, device Consult Discharge Plan - Plan Additional Instructions: Continue WBTT Opsite dressing: leave intact until first post-operative visit. Do not allow for dressing to get wet. If dressing becomes >50% saturated, contact office, remove dressing and place appropriate dressing in its place. Gustavo in place, plan to remove at post-operative day #14-16. Keep follow up with [facility] as scheduled. Referrals: Brandin Ramos MD [Partnered Physician] - (in 1-2 weeks) NONE,PCP [Primary Care Provider] - (with PCP In 1 week) Prescriptions: Albuterol Neb [Proventil Neb] 2.5 mg IH Q4HR PRN #30 inhsol PRN Reason: Shortness Of Breath/Wheezing OxyCODONE Immed Rel [Roxicodone 5 MG] 10 mg PO Q4HR PRN #14 tablet PRN Reason: Moderate pain 4-6 Alendronate Sodium [Fosamax] 70 mg PO QWEEK #10 tab Aspirin Enteric Coated [Aspirin EC] 81 mg PO DAILY #30 tablet. Cholecalciferol (Vitamin D3) [Vitamin D] 50,000 unit PO QWEEK #7 capsule Enoxaparin [Lovenox] 40 mg SQ DAILY #10 syr Metoprolol [Lopressor] 25 mg PO BID #60 tablet Simvastatin [Zocor] 40 mg PO HS #30 tablet Thiamine (B-1) [Vitamin B-1] 100 mg PO DAILY #30 tablet Tiotropium [Spiriva] 18 mcg IH DAILY@0700 #1 inh
[2017-04-04 14:56] VITALS: BP 156/79
--- NOTE | 2017-04-04 16:28 | Orthopedics Progress Note ---
Date of Encounter: 04/04/17 Time of Encounter: 12:50 - Assessment and Plan (1) Right femoral fracture Current Visit: Yes Status: Acute Qualifiers: Encounter type: initial encounter Femur location: neck Fracture type: closed Qualified Code(s): S72.001A - Fracture of unspecified part of neck of right femur, initial encounter for closed fracture (2) COPD (chronic obstructive pulmonary disease) Current Visit: Yes Status: Chronic Qualifiers: COPD type: unspecified COPD Qualified Code(s): J44.9 - Chronic obstructive pulmonary disease, unspecified (3) Tobacco dependence Current Visit: No Status: Chronic (4) Hypertension Current Visit: Yes Status: Chronic Qualifiers: Hypertension type: essential hypertension Qualified Code(s): I10 - Essential (primary) hypertension (5) CAD (coronary artery disease) Current Visit: Yes Status: Chronic Qualifiers: Coronary Disease-Associated Artery/Lesion type: [place] artery [place] vs. transplanted heart: [place] heart Associated angina: without angina Qualified Code(s): I25.10 - Atherosclerotic heart disease of [place] coronary artery without angina pectoris (6) Osteoporosis Current Visit: No Status: Chronic Qualifiers: Osteoporosis type: unspecified Presence of current pathological fracture: with current pathological fracture Encounter type: initial encounter Qualified Code(s): M80.00XA - Age-related osteoporosis with current pathological fracture, unspecified site, initial encounter for fracture (7) Anemia Current Visit: No Status: Chronic Qualifiers: Anemia type: unspecified type Qualified Code(s): D64.9 - Anemia, unspecified Subjective Principal diagnosis: right hip pain Interval history: POD#[address] Ramos Patient was seen this morning doing well Afebrile vital signs stable. Operative extremity: Neurovascularly intact Dressing clean dry and intact. Incision clean dry and intact. [place] nontender Assessment and plan: Continue with postoperative care Stable for discharge Plan for rehab per hospitalist direction Continue WBTT Opsite dressing: leave intact until first post-operative visit. Do not allow for dressing to get wet. If dressing becomes >50% saturated, contact office, remove dressing and place appropriate dressing in its place. [place] in place, plan to remove at post-operative day #14-16. Keep follow up with [facility] as scheduled. Objective Vital signs: Vital Signs Temp Pulse Resp BP Pulse Ox 04/04/17 16:08 16 95 04/04/17 14:56 98.3 F 98 16 156/79 95 04/04/17 10:08 16 93 04/04/17 09:42 97.9 F 105 16 164/89 93 04/04/17 06:27 98.6 F 93 16 154/73 96 04/04/17 04:20 18 95 04/04/17 04:05 98.2 F 89 19 158/80 94 04/03/17 23:19 97.5 F L 75 19 123/77 100 04/03/17 22:33 20 97 04/03/17 18:42 98.1 F 87 17 123/77 97 04/03/17 16:32 16 94 Intake and Output 04/04/17 04/04/17 04/04/17 07:59 15:59 23:59 Intake Total 991.2 / 991.2 Output Total 250 / 250 Balance 741.2 / 741.2 Intake: IV Fluids 511.2 / 511.2 Vitamin B-1 100 MG Folvite 1 MG 511.2 / 511.2 M.v.i. Adult 10 ml In 0.9 % Sodium Chloride 500 ML @ 85.2 mls/hr IVPB DAILY@1800 [facility] Rx#: [id number] Oral 480 / 480 Output: Urine 250 / 250 Other: # Voids 1 - Labs CBC & BMP: 04/02/17 04:43 03/31/17 14:56 Labs: Abnormal lab results MPV 9.0 fL (9.4-12.4) L 03/31/17 14:56 Sodium 135 mEq/L (136-145) L 03/31/17 14:56 BUN 2 mg/dL (7-20) L 03/31/17 14:56 BUN/Creatinine Ratio 4 (6-26) L 03/31/17 14:56 Glucose 102 mg/dL (70-99) H 03/31/17 14:56 Calculated Osmolality 276 (280-300) L 03/31/17 14:56 Cholesterol 286 mg/dL (< 200) H 04/01/17 06:10 LDL Cholesterol, Calc 176 mg/dL (0-99) H 04/01/17 06:10 HDL Cholesterol 94 mg/dL (40-59) H 04/01/17 06:10 - VTE Documentation of Mechanical Device: Venous foot pump, device Consult Discharge Plan - Plan Additional Instructions: Continue WBTT Opsite dressing: leave intact until first post-operative visit. Do not allow for dressing to get wet. If dressing becomes >50% saturated, contact office, remove dressing and place appropriate dressing in its place. [place] in place, plan to remove at post-operative day #14-16. Keep follow up with [facility] as scheduled. Referrals: Brandin Ramos MD [Partnered Physician] - (in 1-2 weeks) NONE,PCP [Primary Care Provider] - (with PCP In 1 week) Prescriptions: Albuterol Neb [Proventil Neb] 2.5 mg IH Q4HR PRN #30 inhsol PRN Reason: Shortness Of Breath/Wheezing OxyCODONE Immed Rel [Roxicodone 5 MG] 10 mg PO Q4HR PRN #14 tablet PRN Reason: Moderate pain 4-6 Alendronate Sodium [Fosamax] 70 mg PO QWEEK #10 tab Aspirin Enteric Coated [Aspirin EC] 81 mg PO DAILY #30 tablet. Cholecalciferol (Vitamin D3) [Vitamin D] 50,000 unit PO QWEEK #7 capsule Enoxaparin [Lovenox] 40 mg SQ DAILY #10 syr Metoprolol [Lopressor] 25 mg PO BID #60 tablet Simvastatin [Zocor] 40 mg PO HS #30 tablet Thiamine (B-1) [Vitamin B-1] 100 mg PO DAILY #30 tablet Tiotropium [Spiriva] 18 mcg IH DAILY@0700 #1 inh
[2017-04-04] MEDS ORDERED: FLUARIX QUAD 2017-18 36MOS UP/PF 0.5 ML SYRINGE IM ONE (17:05)
== END 2017-04-04 18:04 | DRG 308 ==
LOC: EMEROO 13:29 → 3NENU 15:15 → EMEROO 15:15 → SUATTDRO 16:16 → 3NENU 16:16
PROVIDERS: ADMIT Registered Nurse; ATTEND Internal Medicine